=== PATIENT | male | born 1945 | race Caucasian/White ===

== ENCOUNTER 2023-10-06 11:09 | Outpatient (CLI) | payer MEDICARE, BC, SELFPAY ==
--- NOTE | 2023-10-06 06:00 | DI.RAD_ITS ---
Exam(s) XR PAIN CLINIC LUMBAR SP 2V EXAM: XR PAIN CLINIC LUMBAR SP 2V CLINICAL HISTORY: DX: Lumbar Radiculopathy. TECHNIQUE: Fluoroscopy was provided for the referring physician for guidance with performing pain cl inic injection procedure. COMPARISON: No exams were available for comparison FINDINGS: Please see procedure note for details. Fluoro time: 19.8 seconds RADIATION DOSE DELIVERED: Ka,r=13.97 mGy
[2023-10-06 11:25] VITALS: BP 131/73; PULSE 75; RESP 18; TEMP 36.8; O2SAT 96
[2023-10-06 11:43] VITALS: O2SAT 95
[2023-10-06 11:50] VITALS: PULSE 69; RESP 12; O2SAT 95
[2023-10-06 11:54] VITALS: BP 164/91; PULSE 69; RESP 12; O2SAT 95
--- NOTE | 2023-10-06 11:55 | PDOC.PAIN ---
Date of service: 10/06/23 Time of Service: 11:55 Pain Managment Procedure Note Procedure Note Procedure Note: PROCEDURE NOTE LUMBAR EPIDURAL STEROID INJECTION Date of Service: October 06, 2023 Patient:ZOE CHRISTOPHER? Provider: Emery Merritt DO, MPH ZOE TIJERINA has been referred to the [facility] for a lumbar epidural steroid injection. Pre-operative diagnosis: Lumbosacral Radiculopathy Post-operative diagnosis: Same Pre-Procedure Pain: VAS= 6 /10 Comments: He was previously seen in his surgeon's office and that is where the recommendation for this procedure came from. He has low back pain radiating down the right leg. 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 ZOE was interviewed and the medical record was reviewed.? There were no medical, pharmacologic, radiographic or other structural contraindications to attempting fluoroscopically guided Lumbar epidural steroid injection.? Risks, potential side effects, indications, and potential benefits of the procedure were reviewed with ZOE.? Questions and concerns were addressed.? After it was clear that ZOE was fully informed about the procedure, the printed consent form was signed by the patient and myself.? ZOE was placed in the prone position on the fluoroscopy table and automated blood pressure cuff and pulse oximeter applied. The skin entry point for entering/approaching the epidural space for the lumbar epidural steroid injection was marked. Following thorough chlorhexadine preparation of the skin and draping and 1% lidocaine infiltration of the skin entry point and subcutaneous tissues, an 18 gauge Touhy needle was placed and advanced under fluoroscopic guidance and with loss of resistance technique into the L5-S1 epidural space. Needle tip placement and depth were aided and confirmed by fluoroscopy. There was no paresthesia or return of blood or CSF through the needle. 1 mls of Omnipaque 240 was injected with clear epidural spread confirmed with fluoroscopy. 80 mg of Depo-Medrol was? injected. This was followed by 1 ml of preservative-free normal saline to flush the steroid out of the needle. There was no unusual discomfort expressed by ZOE. The needle was withdrawn without difficulty. (49 mls of Omnipaque was wasted) ZOE was observed and was without hemodynamic, neurologic, or allergic reactions.? Fluoroscopic images were digitally archived. ZOE's vital signs were stable throughout the procedure and were as recorded in nursing records. Follow up plans and appointments were discussed with ZOE. Post procedure instruction was given as documented in nursing records and having met discharge criteria ZOE was discharged from the [facility]. COMMENTS: No apparent complications. Post-procedure pain: VAS= 2/10. ZOE to contact [facility] as needed. If at least 50% improvement in pain and/or function for at least 3 months is achieved, this procedure can be repeated. I personally performed this entire procedure. EMERY MERRITT DO, MPH ABPMR-subspecialty board certification in Pain Medicine [facility]
[2023-10-06 11:58] VITALS: BP 145/86; PULSE 72
[2023-10-06] MEDS: Omnipaque 240 MG/ML 50 ML BTL IJ (12:03)
[2023-10-06] MEDS: methylPREDNISolone ACETATE 80 MG/ML VIAL IJ (12:03)
[2023-10-06] MEDS: Epidural Tray 1 EACH MC (12:04)
== END 2023-10-06 11:10 | disposition home or self-care (01) ==
PROVIDERS: PCP Family Medicine; Visit Provider Preventive Medicine Occupational Medicine
DX: M54.17 Radiculopathy, lumbosacral region (principal); M54.50 Low back pain, unspecified
CPT/HCPCS: 62323; 72100; J1010; Q9967

== ENCOUNTER 2024-09-05 09:21 | Outpatient (CLI) | payer MEDICARE, BC, SELFPAY ==
--- NOTE | 2024-09-05 09:15 | DI.RAD_ITS ---
Exam(s) XR PAIN CLINIC LUMBAR SP 2V EXAM: XR PAIN CLINIC LUMBAR SP 2V CLINICAL HISTORY: Dx: Lumbar Radiculopathy TECHNIQUE: 2D and realtime digital imaging was performed. CONTRAST MATERIAL: Refer to procedure report. COMPARISON: No exams were available for comparison FINDINGS: Fluoroscopy was provided for Dr. Merritt during the performance of a lumbar epidural steroid injection. Please refer to the procedure report for complete details. Ka,r=10.8 mGy IMPRESSION: RADIATION DOSE DELIVERED: 0.0 0.0 0
[2024-09-05 09:20] VITALS: BP 152/62; PULSE 73; RESP 21; TEMP 36.4; O2SAT 97
[2024-09-05 09:52] VITALS: PULSE 62; O2SAT 96
[2024-09-05 09:53] VITALS: BP 139/84; PULSE 62; PULSE 63; RESP 12; O2SAT 96
[2024-09-05] MEDS: Omnipaque 240 MG/ML 50 ML BTL IJ (10:04)
[2024-09-05] MEDS: Epidural Tray 1 EACH MC (10:04)
[2024-09-05] MEDS: methylPREDNISolone ACETATE 80 MG/ML VIAL IJ (10:04)
--- NOTE | 2024-09-05 11:15 | PDOC.PAIN ---
Date of service: 09/05/24 Time of Service: 11:15 Pain Managment Procedure Note Procedure Note Procedure Note: PROCEDURE NOTE LUMBAR EPIDURAL STEROID INJECTION Date of Service: September 05, 2024 Patient:ZOE CHRISTOPHER? Provider: Emery Merritt DO, MPH ZOE TIJERINA has been referred to the [facility] for a lumbar epidural steroid injection. Pre-operative diagnosis: Lumbosacral Radiculopathy ICD-10 M54.16 Post-operative diagnosis: Same Pre-Procedure Pain: VAS= 6 /10 Comments: I saw him in the office this morning. ZOE was interviewed and the medical record was reviewed.? There were no medical, pharmacologic, radiographic or other structural contraindications to attempting fluoroscopically guided Lumbar epidural steroid injection.? Risks, potential side effects, indications, and potential benefits of the procedure were reviewed with ZOE.? Questions and concerns were addressed.? After it was clear that ZOE was fully informed about the procedure, the printed consent form was signed by the patient and myself.? ZOE was placed in the prone position on the fluoroscopy table and automated blood pressure cuff and pulse oximeter applied. The skin entry point for entering/approaching the epidural space for the lumbar epidural steroid injection was marked. Following thorough chlorhexadine preparation of the skin and draping and 1% lidocaine infiltration of the skin entry point and subcutaneous tissues, an 18 gauge Touhy needle was placed and advanced under fluoroscopic guidance and with loss of resistance technique into the L5-S1 epidural space. Needle tip placement and depth were aided and confirmed by fluoroscopy. There was no paresthesia or return of blood or CSF through the needle. 1 mls of Omnipaque 240 was injected with clear epidural spread confirmed with fluoroscopy. 80 mg of Depo-Medrol was? injected. This was followed by 1 ml of preservative-free normal saline to flush the steroid out of the needle. There was no unusual discomfort expressed by ZOE. The needle was withdrawn without difficulty. (49 mls of Omnipaque was wasted) ZOE was observed and was without hemodynamic, neurologic, or allergic reactions.? Fluoroscopic images were digitally archived. ZOE's vital signs were stable throughout the procedure and were as recorded in nursing records. Follow up plans and appointments were discussed with ZOE. Post procedure instruction was given as documented in nursing records and having met discharge criteria ZOE was discharged from the [facility]. COMMENTS: No apparent complications. Post-procedure pain: VAS= 1/10. ZOE to contact [facility] as needed. If at least 50% improvement in pain and/or function for at least 3 months is achieved, this procedure can be repeated. I personally performed this entire procedure. EMERY MERRITT DO, MPH ABPMR-subspecialty board certification in Pain Medicine [facility] Coding Conscious Sedation used for procedure: No CPT Codes: Inj Spine L/S w/Imaging - 95009 ([id number] ~G) Additional Codes: Date of Service (67120) Date of service: 09/05/24 Diagnoses: lumbar radiculopathy
== END 2024-09-05 09:22 | disposition home or self-care (01) ==
LOC: PC 09:21
PROVIDERS: PCP Family Medicine; Visit Provider Preventive Medicine Occupational Medicine
DX: M54.50 Low back pain, unspecified (principal); M54.16 Radiculopathy, lumbar region
CPT/HCPCS: 62323; 72100; J1010; Q9967